=== PATIENT | female | born 1960 | race Caucasian/White ===

== ENCOUNTER 2019-08-01 15:25 | Emergency (ER) | payer OTHER, SELFPAY ==
[2019-08-01 15:49] VITALS: BP 142/76; PULSE 75; RESP 20; TEMP 36.6; O2SAT 94
--- NOTE | 2019-08-01 17:07 | ED.GENADULT ---
HPI - General Adult General Chief complaint: Upper Respiratory Infection Stated complaint: Bronchitis Time Seen by Provider: 08/01/19 17:07 Source: patient and RN notes reviewed Mode of arrival: ambulatory Limitations: no limitations History of Present Illness HPI narrative: 59-year-old female presents with complains of upper respiratory infection symptoms, dry cough, wheezing, ear pressure, and intermittent headache (not the worst of her life for the past 7 days. without relief. Constant dry cough. No chest congestion. Rhinorrhea and nasal congestion. Denies sore throat. No high fevers, drooling, neck or throat swelling. No chest pain, or shortness of breath. Exacerbation factors consist of smoke exposure. Denies nausea, vomiting, and abdominal pain. Tolerating liquids well. Remains active. Some parts of this dictation were generated by voice recognition software and may contain typographical and/or grammatical inaccuracies. Related Data Allergies Allergy/AdvReac Type Severity Reaction Status Date / Time No Known Allergies Allergy Verified 08/01/19 16:36 Review of Systems Review of Systems: Narrative: CONSTITUTIONAL: Complains of fatigue. Denies fever, chills, sweats. EYES: Denies visual changes, redness, discharge. ENT: Complains of rhinorrhea, congestion. Denies sore throat, otalgia. CARDIOVASCULAR: Denies chest pain, palpitations, edema. RESPIRATORY: Denies dyspnea. Complains of dry cough, wheezing. GASTROINTESTINAL: Denies abdominal pain, nausea, vomiting, diarrhea. GENITOURINARY: Denies dysuria, hematuria, abnormal discharge. SKIN: Denies rash or itching. MUSCULOSKELETAL: Denies acute back pain, joint pain, or myalgia. NEUROLOGIC: Denies numbness or focal weakness. Complains of intermittent [facility]. PSYCHIATRIC: Denies anxiety or depression. All systems reviewed & are unremarkable except as noted in HPI and below PMFSH Past Medical History Medical History Appendicitis delivery delivered Smoker Surgical History Surgical History (Updated 08/01/19 @ 17:12 by VIJAY Shipman) H/O section Hx of appendectomy Family History Family History (Updated 08/01/19 @ 17:13 by VIJAY Shipman) Father Acute myocardial infarction Heart disease Mother Lung cancer Sibling Cerebrovascular accident Social History Social History (Updated 08/07/19 @ 20:34 by VIJAY Shipman) Smoking packs per day: 0.5 Smoking cigarettes per day: 10.0 Years smoked: 4 Smoking pack-years: 2.00 Smoking status: Current every day smoker Tobacco type: cigarettes Alcohol intake: current Alcohol use details: occasional Substance use: never Living arrangements: with family Occupation/Education: occupation Gender identity (if verbalized by the patient): Female Comments At time of signature, agree with nurse past medical, surgical, social, and family history. There is no relevant family history pertinent to the presenting complaint. Exam Narrative: Exam Narrative: GENERAL: This is a well-nourished, well-developed patient, in no apparent distress. Talks in full sentences and ambulates with steady gait without dyspnea. HEAD: normocephalic, atraumatic. EYES: PERRL. Sclera clear/white. Vision is grossly intact. EARS: External ears normal, auditory canals clear and without drainage, TMs normal without perforation. Hearing grossly intact. NOSE: External nose normal with no obvious nasal discharge, nares with mild redness and enlarged turbinates, yellow rhinorrhea. THROAT: Mucous membranes moist, posterior pharynx with PND, mild erythema, no exudate, and normal tonsils. No drainage, no concern for Peritonsillar abscess. No drooling, trismus, or neck swelling. NECK: Neck supple, non-tender without lymphadenopathy, masses or thyromegaly. CARDIOVASCULAR: Regular rate and rhythm without murmurs, gallops, or rubs. RESPIRATORY: Clear t
== END 2019-08-01 17:20 | disposition home or self-care (01) ==
PROVIDERS: Emergency Provider Nurse Practitioner Family; PCP Family Medicine
DX: J40 Bronchitis, not specified as acute or chronic (principal); F17.200 Nicotine dependence, unspecified, uncomplicated
CPT/HCPCS: 99213; G0463

== ENCOUNTER 2019-08-26 12:18 | Emergency (ER) | payer OTHER, SELFPAY ==
[2019-08-26 12:29] VITALS: BP 148/80; PULSE 72; RESP 18; TEMP 35.9; O2SAT 97
--- NOTE | 2019-08-26 12:30 | ED.GENADULT ---
HPI - General Adult General Chief complaint: Ear Stated complaint: ear pain/pressure Time Seen by Provider: 08/26/19 12:31 Source: patient and RN notes reviewed Mode of arrival: ambulatory Limitations: no limitations History of Present Illness HPI narrative: This is a 59 years old female presents to the office for an evaluation of right ear pain for one week. Denies any other associated symptoms include cough, fever, chest pain or abdominal pain. She took ASA and benadryl for her symptoms. Related Data Allergies Allergy/AdvReac Type Severity Reaction Status Date / Time No Known Allergies Allergy Verified 08/26/19 12:45 Review of Systems Review of Systems: Narrative: CONSTITUTIONAL: Denies fever ENT: Reports rhinorrhea, congestion; contribute to allergies. Denies sore throat, otalgia. CARDIOVASCULAR: Denies chest pain RESPIRATORY: Denies cough GASTROINTESTINAL: Denies abdominal pain, nausea, vomiting SKIN: Denies rash MUSCULOSKELETAL: Denies acute back pain NEUROLOGIC: Denies lightheaded PMFSH Past Medical History Medical History Appendicitis delivery delivered Smoker Surgical History Surgical History H/O section Hx of appendectomy Family History Family History Father Acute myocardial infarction Heart disease Mother Lung cancer Sibling Cerebrovascular accident Social History Social History Smoking packs per day: 0.5 Smoking cigarettes per day: 10.0 Years smoked: 4 Smoking pack-years: 2.00 Smoking status: Current every day smoker Tobacco type: cigarettes Alcohol intake: current Substance use: never Gender identity (if verbalized by the patient): Female Comments At time of signature, I agree with nursing past medical, surgical, social and family history. There is no relevant family history pertinent to the presenting complaint. Exam Narrative: Exam Narrative: GENERAL: This is a well-nourished, well-developed patient, in no apparent distress. EARS: External ears normal, right auditory canal noted a fluculate nodule with tenderness to palpation, Left canal clear and without drainage, TMs normal without perforation. Hearing grossly intact. CARDIOVASCULAR: Regular rate and rhythm without murmurs, gallops, or rubs. RESPIRATORY: Clear to auscultation. Breath sounds equal bilaterally. No wheezes, rales, or rhonchi. GASTROINTESTINAL: Abdomen soft, non-tender, nondistended. Bowel sounds are active. No hepato-splenomegaly, or palpable masses. No guarding. NEURO: awake, alert, and oriented to person, place and time. There were no obvious focal neurologic abnormalities. Steady gait [place] Coma Scale Eye Opening: Spontaneous 4 [place] Coma Scale Motor: Obeys Commands 6 [place] Coma Scale Verbal: Oriented 5 Course Vital Signs Vital signs: Vital Signs Temperature 96.7 F L 08/26/19 12:29 Pulse Rate 72 08/26/19 12:29 Respiratory Rate 18 08/26/19 12:29 Blood Pressure 148/80 H 08/26/19 12:29 Pulse Oximetry 97 08/26/19 12:29 Temperature 96.7 F L 08/26/19 12:29 Pulse Rate 72 08/26/19 12:29 Respiratory Rate 18 08/26/19 12:29 Blood Pressure 148/80 H 08/26/19 12:29 Pulse Oximetry 97 08/26/19 12:29 Procedures Abscess I/D other: Date of Incision: 08/26/19 Time of Incision: 12:38 Side (if applicable): right Sedation/analgesia: none Local Anesthetic: none Technique: needle aspiration Amount of fluid expressed (mL): 0.5 Irrigation: No Packing used?: none I&D Results: Pus and Blood Complications: pain Medical Decision Making MDM Narrative Medical decision making narrative: Elevated BP noted: patient is informed that they may have pre-hypertension or hypertension based on
== END 2019-08-26 13:10 | disposition home or self-care (01) ==
PROVIDERS: Emergency Provider Nurse Practitioner; PCP Family Medicine
DX: H60.01 Abscess of right external ear (principal); H60.501 Unspecified acute noninfective otitis externa, right ear; F17.210 Nicotine dependence, cigarettes, uncomplicated
CPT/HCPCS: 10160; 99213; G0463

== ENCOUNTER 2021-01-02 10:13 | Emergency (ER) | payer OTHER, SELFPAY ==
--- NOTE | ~2021-01-02 | XR_ITS ---
XR foot RT min 3V 01/02/2021 10:42 Indication: Right foot pain after injury Procedure: 4 views right foot Comparison: No prior studies for comparison. Findings: There is heterotopic ossification just lateral to the first MTP joint. There is mild osteoa rthritis of the first MTP joint. Lisfranc joint intact. No acute fracture is identified. Normal financial examiner alization. There is a plantar degenerative calcaneal enthesophyte. Impression: 1: No acute fracture. Reviewed, dictated and finalized at location A. Impression: 1: No acute fracture.
[2021-01-02 10:20] VITALS: BP 154/81; PULSE 75; RESP 16; TEMP 36.6; O2SAT 97
[2021-01-02 10:27] VITALS: BP 154/81; PULSE 75; RESP 16; TEMP 36.6; O2SAT 97
--- NOTE | 2021-01-02 10:31 | ED.LOWEXIN ---
HPI - Extremity Injury (Lower) General Chief Complaint: Extremity Injury, Lower Stated Complaint: right foot injury Source: patient Mode of arrival: ambulatory History of Present Illness HPI Narrative: 60-year-old female presents to [facility] with complaints of pain and swelling to the dorsal aspect of her right foot for the past days. Patient reports that 2 weeks she did hit her foot on a door at home. Patient has been taking [id number] Aleve with minimal relief. Patient denies previous injury. Patient denies numbness, tingling, erythema or open wounds. MD complaint: foot injury Onset (ago): day(s) (1) Injury: Right: foot Relieving factors: nothing Exacerbating factors: movement and palpation Other symptoms: none Related Data Allergies Allergy/AdvReac Type Severity Reaction Status Date / Time No Known Allergies Allergy Verified 01/02/21 10:25 Review of Systems Constitutional: Constitutional: Denies chills, Denies fever(s) and Denies weakness Cardiovascular: Cardiovascular: Denies chest pain Respiratory: Respiratory: Denies cough, Denies dyspnea and Denies wheezing Gastrointestinal: Gastrointestinal: Denies abdominal pain, Denies diarrhea, Denies nausea and Denies vomiting Musculoskeletal: Musculoskeletal: Reports arthralgias and Reports joint swelling Integumentary/Breasts: Skin/Breast: Denies rash PMFSH Past Medical History Medical History Appendicitis delivery delivered Smoker Surgical History Surgical History H/O section Hx of appendectomy Family History Family History Father Acute myocardial infarction Heart disease Mother Lung cancer Sibling Cerebrovascular accident Social History Social History Smoking packs per day: 0.5 Smoking cigarettes per day: 10.0 Years smoked: 4 Smoking pack-years: 2.00 Smoking status: Current every day smoker Tobacco type: cigarettes Alcohol intake: current Alcohol use details: occasional Substance use: never Gender identity (if verbalized by the patient): Female Comments At time of signature, I agree with nursing past medical, surgical, social and family history. There is no relevant family history pertinent to the presenting complaint. Exam Const: General: healthy appearing and no acute distress Orientation/consciousness: patient oriented x3 Neck: Neck: normal visual inspection Resp: Effort & Inspection: normal respiratory effort, not labored and not tachypneic Auscultation: clear to auscultation bilaterally Cardio: Rate: regular rate, not bradycardic and not tachycardic Rhythm: regular rhythm Skin: General skin exam: normal color Rashes: no rashes Wounds: no wounds Neuro: General: patient oriented x3, moves all extremities and no meningeal signs Extrem: Other: Mild erythema and pain with palpation noted to dorsal aspect of right foot. There is no bruising, erythema or open wounds noted. Pulses are within normal range Psych: Affect: normal affect Attitude: cooperative Course Vital Signs Vital signs: Vital Signs Temperature 36.6 C 01/02/21 10:20 Pulse Rate 75 01/02/21 10:20 Respiratory Rate 16 01/02/21 10:20 Blood Pressure 154/81 H 01/02/21 10:20 Pulse Oximetry 97 01/02/21 10:20 Temperature 36.6 C 01/02/21 10:27 Pulse Rate 75 01/02/21 10:27 Respiratory Rate 16 01/02/21 10:27 Blood Pressure 154/81 H 01/02/21 10:27 Pulse Oximetry 97 01/02/21 10:27 MDM - Extremity Injury (Lower) MDM Narrative Medical decision making narrative: X-ray results discussed with patient. Patient agrees to follow-up with podiatry for further evaluation. Dave wrap applied to right foot per nursing staff. Patient agrees take meloxicam as prescribed. Patient agrees to proceed to t
== END 2021-01-02 11:01 | disposition home or self-care (01) ==
PROVIDERS: Emergency Provider Nurse Practitioner Family; PCP Family Medicine
DX: M79.671 Pain in right foot (principal); F17.210 Nicotine dependence, cigarettes, uncomplicated
CPT/HCPCS: 73630; 99213; G0463

== ENCOUNTER 2021-02-02 11:12 | Emergency (ER) | payer OTHER, SELFPAY ==
--- NOTE | ~2021-02-02 | XR_ITS ---
EXAMINATION: XR chest 2V DATE: 02/02/2021 11:56 INDICATION: Cough and wheezing TECHNIQUE: PA and lateral views of the chest are obtained. COMPARISON: 07/21/2018 FINDINGS: The lungs are free of acute opacities. There is no pleural effusion or pneumothorax. The ca rdiomediastinal silhouette is normal. There is moderate thoracic spondylosis. IMPRESSION: 1. No acute cardiopulmonary abnormality. Reviewed, dictated and finalized at location A.
[2021-02-02 11:27] VITALS: BP 151/90; PULSE 68; RESP 22; TEMP 36.9; O2SAT 97
--- NOTE | 2021-02-02 11:43 | ED.URI ---
HPI - URI/Sore Throat General Chief Complaint: Upper Respiratory Infection Stated Complaint: cough,headache Time Seen by Provider: 02/02/21 11:40 Source: patient and RN notes reviewed Mode of arrival: ambulatory Limitations: no limitations History of Present Illness HPI Narrative: 60-year-old female presents to the [facility] with 2 weeks of shortness of breath, cough, chest congestion. Reports similar symptoms and was diagnosed with bronchitis in the past. Denies chest pain or abdominal pain. Denies fevers. Has taken Mucinex MD elicited complaint: cough Related Data Allergies Allergy/AdvReac Type Severity Reaction Status Date / Time No Known Allergies Allergy Verified 02/02/21 11:28 Review of Systems Review of Systems: All systems reviewed & are unremarkable except as noted in HPI and below Constitutional: Constitutional: Reports no additional constitutional complaints, Denies chills and Denies fever(s) Eyes: Eyes: Reports no additional eye complaints ENT: Reports nasal congestion Cardiovascular: Cardiovascular: Reports no additional cardiovascular complaints and Denies chest pain Respiratory: Respiratory: Reports as per HPI, Reports chest congestion, Reports cough, Reports dyspnea and Reports wheezing Musculoskeletal: Musculoskeletal: Reports no additional musculoskeletal complaints, Denies back pain and Denies muscle cramps Integumentary/Breasts: Skin/Breast: Reports system reviewed and no additional complaints, except as docu Neurologic: Reports system reviewed and no additional complaints, except as documented Psychiatric: Psychiatric: Reports no additional psychiatric complaints Allergic/Immunologic: Allergic/Immunologic: Reports no additional allergic/immunologic complaints PMF Past Medical History Medical History Appendicitis delivery delivered Smoker Surgical History Surgical History H/O section Hx of appendectomy Family History Family History Father Acute myocardial infarction Heart disease Mother Lung cancer Sibling Cerebrovascular accident Social History Social History Smoking packs per day: 0.5 Smoking cigarettes per day: 10.0 Years smoked: 4 Smoking pack-years: 2.00 Smoking status: Current every day smoker Tobacco type: cigarettes Alcohol intake: current Alcohol use details: occasional Substance use: never Gender identity (if verbalized by the patient): Female Comments At the time of my signature, I reviewed and agree with the nursing past medical, surgical, social, and family history. There is no relevant family history pertinent to the patient complaint. Exam Const: General: no acute distress, alert and ill appearing chronically Nutritional Appearance: obese Orientation/consciousness: patient oriented x3 Limitations: no limitations HENMT: Head: normal to inspection Eyes: Conjunctivae: conjunctivae normal Pupils: Equal, round and reactive pupils present Neck: Neck: normal visual inspection and no lymphadenopathy Chest: Chest palpation & inspection: normal inspection of the chest Resp: Effort & Inspection: no use of accessory muscles Auscultation: crackles and wheezes Cardio: Rate: regular rate Rhythm: regular rhythm GI: GI Palp: Yes Soft to palpation and No Tenderness to palpation present (GI) : General: Yes no CVA tenderness Back/Spine/Pelvis: Back: no CVA tenderness Skin: General skin exam: normal color Rashes: no rashes Neuro: General: patient oriented x3, moves all extremities, no meningeal signs and no focal motor deficits Speech: normal speech Gait exam (Neuro): Normal gait present (Walks with a cane) Extrem: General: normal to inspection Psych: Appearance: grossly normal and well kempt Mental Status: mental status lorenzo
[2021-02-02] MEDS: ALBUTEROL SULFATE NEB 2.5 MG/3 ML INH INHALATION (11:54)
[2021-02-02] MEDS: IPRATROPIUM BR 0.02% INH SOLN 0.5 MG/2.5 ML VIAL INHALATION (11:55)
== END 2021-02-02 12:15 | disposition home or self-care (01) ==
PROVIDERS: Emergency Provider Nurse Practitioner; PCP Family Medicine
DX: J40 Bronchitis, not specified as acute or chronic (principal); F17.210 Nicotine dependence, cigarettes, uncomplicated
CPT/HCPCS: 71046; 94640; 99213; G0463

== ENCOUNTER 2022-09-13 08:37 | Emergency (ER) | payer OTHER, SELFPAY ==
--- NOTE | ~2022-09-13 | XR_ITS ---
EXAMINATION: XR chest 2V DATE: 09/13/2022 09:25 INDICATION: Transient breath, cough and wheezing in a smoker. TECHNIQUE: PA and lateral views of the chest were obtained. COMPARISON: Chest radiograph dated 02/02/21 FINDINGS: The lungs remain clear with no focal airspace opacities, pulmonary edema, pleural effusion or pneumot horax. The cardiomediastinal silhouette is normal. Mild thoracic dextrocurvature with moderate spondy losis. IMPRESSION: 1. No acute cardiopulmonary disease. Reviewed, dictated and finalized at location A.
[2022-09-13 08:43] VITALS: BP 158/66; PULSE 88; RESP 16; TEMP 35.5; O2SAT 97
--- NOTE | 2022-09-13 09:17 | ED.GENADULT ---
HPI - General Adult General Chief complaint: Upper Respiratory Infection Stated complaint: Cough/Chest Congestion Source: patient Mode of arrival: ambulatory Limitations: no limitations History of Present Illness HPI narrative: Patient presents for evaluation of respiratory symptoms for the last 1.5-2 weeks. Symptoms include cough, shortness of breath, wheezing, bilateral ear pain, rhinorrhea. Rhinorrhea is chronic, unchanged from baseline. No fever, chills, nausea, vomiting. She smokes just under 1/2 ppd. Her recently had similar symptoms. She states she gets bronchitis every year. She has tried taking guaifenesin without dextromethorphan with some improvement in her symptoms thereafter. Related Data Allergies Allergy/AdvReac Type Severity Reaction Status Date / Time No Known Allergies Allergy Verified 02/02/21 11:28 Review of Systems Review of Systems: CONSTITUTIONAL: Denies fever, chills, or sweats. EYES: Denies visual changes, redness, or discharge. ENT: Denies rhinorrhea, congestion, sore throat, or otalgia. CARDIOVASCULAR: Denies chest pain, palpitations, or edema. RESPIRATORY: Reports nonproductive cough, wheezing and shortness of GASTROINTESTINAL: Denies abdominal pain, nausea, vomiting, or diarrhea. GENITOURINARY: Denies dysuria or hematuria. SKIN: Denies rash or itching. MUSCULOSKELETAL: Denies back pain, joint pain, or myalgia. NEUROLOGIC: Denies headache, numbness, dizziness, or weakness. PSYCHIATRIC: Denies anxiety or depression. [facility] Past Medical History Medical History Appendicitis delivery delivered Smoker Surgical History Surgical History H/O section Hx of appendectomy Family History Family History Father Acute myocardial infarction Heart disease Mother Lung cancer Sibling Cerebrovascular accident Social History Social History Smoking packs per day: 0.5 Smoking cigarettes per day: 10.0 Years smoked: 4 Smoking pack-years: 2.00 Smoking status: Current every day smoker Tobacco type: cigarettes Alcohol intake: current Alcohol use details: occasional Substance use: never Living arrangements: with family Occupation/Education: occupation Gender identity (if verbalized by the patient): Female Exam Narrative: GENERAL: Well-appearing, well-nourished, and in no acute distress. HEAD: Normocephalic, atraumatic. EYES: PERRLA and EOMI. ENT: Nares clear, no rhinorrhea or epistaxis. Mucous membranes moist. Oropharynx without tonsillar hypertrophy exudate or other lesions. Bilateral TMs pearly judd nonbulging NECK: Supple. No adenopathy or masses. No carotid bruits or JVD CHEST: Wheezing noted in posterior lung wray bilaterally. Cough present on exam HEART: Regular rate and rhythm. No murmur heard. Normal peripheral pulses. ABDOMEN: Soft, nontender, nondistended, normal active bowel sounds. EXTREMITIES: Normal range of motion. No edema. SKIN: Warm, dry, no rash. NEURO: No focal deficits. Alert and oriented x3. PSYCH: Normal mood and affect. Course Course Emergency Course: THIS IS A 62-YEAR-OLD FEMALE WHO PRESENTED FOR EVALUATION OF SICK SYMPTOMS. COVID AND INFLUENZA NEGATIVE. CHEST X-RAY NEGATIVE. EXAM IS CONSISTENT WITH VIRAL URI. WILL TREAT WITH PREDNISONE, ALBUTEROL, TESSALON. ADVISED ON SMOKING CESSATION. INCREASE HYDRATION. [id number] AGENTS FOR SYMPTOM MANAGEMENT. FOLLOW UP WITH PRIMARY PROVIDER. GO TO THE ER FOR WORSENING SYMPTOMS. PATIENT IN AGREEMENT WITH PLAN OF CARE. Level of Care: Express Care Visit Vital Signs Vital signs: Vital Signs Temperature 35.5 C L 09/13/22 08:43 Pulse Rate 88 09/13/22 08:43 Respiratory Rate 16 09/13/22 08:43 Blood Pressure 158/66 H 09/13/22 0
== END 2022-09-13 10:12 | disposition home or self-care (01) ==
PROVIDERS: Emergency Provider Nurse Practitioner; PCP Family Medicine
DX: J06.9 Acute upper respiratory infection, unspecified (principal); Z20.822 Contact with and (suspected) exposure to COVID-19; F17.210 Nicotine dependence, cigarettes, uncomplicated
CPT/HCPCS: 71046; 87426; 87804; 99213; C9803; G0463